=== PATIENT | female | born 1960 | race Caucasian/White ===

== ENCOUNTER 2018-01-20 09:14 | Day surgery (SDC) | payer BC ==
[~2018-01-20] VITALS: Ht 162.6 cm; Wt 88.1 kg
[2018-01-20 10:02] VITALS: BP 152/80; PULSE 80; TEMP 98.3
[2018-01-20 12:04] VITALS: BP 149/74; PULSE 88; TEMP 98.3
[2018-01-20 12:15] VITALS: BP 132/73; PULSE 78
[2018-01-20 12:30] VITALS: BP 127/69; PULSE 73
[2018-01-20 12:45] VITALS: BP 124/63; PULSE 76
== END 2018-01-20 13:05 | disposition home or self-care (01) ==
LOC: SDCO 09:14
DX: Z12.11 Encounter for screening for malignant neoplasm of colon (principal); D12.0 Benign neoplasm of cecum; Z88.2 Allergy status to sulfonamides
CPT/HCPCS: J2250; J3010; J7030

== ENCOUNTER 2018-07-28 08:24 | Day surgery (SDC) | payer BC ==
[~2018-07-28] VITALS: Ht 162.6 cm; Wt 84.0 kg
[2018-07-28 08:58] VITALS: BP 133/94; PULSE 70; TEMP 98.1
[2018-07-28 11:30] VITALS: BP 138/71; PULSE 81; TEMP 97.9
[2018-07-28 11:45] VITALS: BP 128/68; PULSE 77
[2018-07-28 12:00] VITALS: BP 128/70; PULSE 73
== END 2018-07-28 12:20 | disposition home or self-care (01) ==
LOC: SDCO 08:24
DX: Z12.11 Encounter for screening for malignant neoplasm of colon (principal); K63.5 Polyp of colon; Z86.010 Personal history of colon polyps; Z88.2 Allergy status to sulfonamides
CPT/HCPCS: J2250; J2405; J3010; J7030

== ENCOUNTER 2018-11-03 08:30 | Day surgery (SDC) | payer BC ==
[~2018-11-03] VITALS: Ht 162.6 cm; Wt 83.9 kg
[2018-11-03 09:03] VITALS: BP 135/83; PULSE 86; TEMP 98.2
--- NOTE | 2018-11-03 09:06 | NUR ---
TO RM AT 0840 CALL LIGHT IN REACH
[2018-11-03 10:05] VITALS: BP 141/72; PULSE 70; TEMP 98
--- NOTE | 2018-11-03 10:05 | NUR ---
PATIENT BACK FROM ENDO SUITE. [employer] AT BEDSIDE. PATIENT ALERT AND ORIENTED, NO COMPLAINTS. WILL GET FOOD AND DRINK FOR PATIENT. VS APPEARS STABLE.
[2018-11-03 10:15] VITALS: BP 128/75; PULSE 71
--- NOTE | 2018-11-03 10:15 | NUR ---
PATIENT ALERT AND ORIENTED, NO COMPLAINTS. VS APPEAR STABLE. WILL CONTINUE TO MONITOR.
[2018-11-03 10:30] VITALS: BP 125/66; PULSE 77
--- NOTE | 2018-11-03 10:30 | NUR ---
PATIENT ALERT AND ORIENTED, VS STABLE. NO COMPLAINTS. WILL DISCHARGE PATIENT SOON DR SEES PATIENT.
== END 2018-11-03 10:50 | disposition home or self-care (01) ==
LOC: SDCO 08:30
DX: Z12.11 Encounter for screening for malignant neoplasm of colon (principal); D12.0 Benign neoplasm of cecum; K63.89 Other specified diseases of intestine; Z86.010 Personal history of colon polyps; Z88.2 Allergy status to sulfonamides
CPT/HCPCS: J2250; J3010; J7030